=== PATIENT | male | born 1955 | race Caucasian/White ===

== ENCOUNTER 2016-12-01 20:55 | Outpatient (CLI) | payer MEDICAID | END 2016-12-01 20:56 | disposition EMS.NT | LOC: EMS 20:55 | PROVIDERS: ATTEND Surgery | DX: F10.129 Alcohol abuse with intoxication, unspecified (principal) ==

== ENCOUNTER 2016-12-07 20:44 | Outpatient (CLI) | payer MEDICAID | END 2016-12-07 20:45 | disposition critical access hospital (66) | LOC: EMS 20:44 | PROVIDERS: ATTEND Surgery | DX: M25.551 Pain in right hip (principal); M25.562 Pain in left knee; W19.XXXA Unspecified fall, initial encounter | CPT/HCPCS: A0425; A0429 ==

== ENCOUNTER 2016-12-07 20:57 | Emergency (ER) | payer MEDICAID ==
--- NOTE | 2016-12-07 21:56 | XRAY Preliminary Report ---
Exam: XR KNEE 3 VIEW LT IMPRESSION: Normal knee radiography. [facility] SITE ID: [id number]
--- NOTE | 2016-12-07 21:58 | XRAY Preliminary Report ---
Exam: XR HIP W/PELVIS 1V RT IMPRESSION: 1. No fracture. 2. Minimal degenerative changes in the left hip joint. [facility] SITE ID: [id number]
--- NOTE | 2016-12-07 21:59 | XRAY Report ---
EXAM: LEFT KNEE RADIOGRAPHY EXAM DATE: 12/07/2016 09:37 PM. CLINICAL HISTORY: Fall, hip and knee pain. COMPARISON: None. TECHNIQUE: 3 views. FINDINGS: Bones: Normal. No fractures or bone lesions. Joints: Normal. No effusion. No subluxations. Soft Tissues: Normal. No soft tissue swelling. IMPRESSION: Normal knee radiography. [facility] Referring Provider Line: [phone] SITE ID: [id number]
--- NOTE | 2016-12-07 22:51 | ED Physician Documentation ---
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 Patient was sitting outside of [facility] for a few hours and woudn't leave. [facility] called police. Patient stated that he thought that he was in [place] and stated that he had some leg pain and hip pain so ems brought patient in for evaluation. Patient admitted to drinking a few beers today. Review of Systems Unable to obtain: Intoxicated PD PAST MEDICAL HISTORY - Past Medical History Past Medical History: Yes GI: GERD Psych: Depression, Anxiety Musculoskeletal: Chronic back pain - Past Surgical History Past Surgical History: No - Present Medications Home Medications: Ambulatory Orders Medication Instructions Recorded Confirmed Citalopram [CeleXA] 20 mg ORAL DAILY 12/07/16 12/07/16 Omeprazole [PriLOSEC] 20 mg ORAL DAILY 12/07/16 12/07/16 traZODone [Desyrel] 40 mg ORAL DAILY 12/07/16 12/07/16 - Allergies Allergies/Adverse Reactions: Allergies Allergy/AdvReac Type Severity Reaction Status Date / Time No Known Drug Allergies Allergy Verified 12/07/16 21:03 - Social History Does the pt smoke?: Yes Smoking Status: Current every day smoker Does the pt drink ETOH?: Yes ETOH Use: Beer Does the pt have substance abuse?: Yes Substance Use and Type: Marijuana - Immunizations Immunizations are current?: No - POLST Patient has POLST: No PD ED PE NORMAL - Vitals Vital signs reviewed: Yes - General General: No acute distress - HEENT HEENT: Atraumatic, PERRL - Neck Neck: No bony TTP - Cardiac Cardiac: RRR, No murmur - Respiratory Respiratory: No respiratory distress - Abdomen Abdomen: Non distended - Derm Derm: No rash - Neuro Neuro: No motor deficit PD ED PE EXPANDED - General General: Disheveled, poorly kept - HEENT HEENT: Atraumatic, Other (poor dentition) - Extremities Extremities: Right hip (mild tenderness to palpation, no gross deformity) - Psych Psych: Intoxicated / AOB Results - Vitals Vitals: Vital Signs - 24 hr 12/07/16 12/08/16 20:59 04:10 Temperature 36 C L 37 C Heart Rate 95 99 Respiratory 18 20 Rate Blood Pressure 133/94 H 120/77 O2 Saturation 97 99 Oxygen O2 Source Room air - Labs Labs: Laboratory Tests 12/07/16 21:42 Ethyl Alcohol 373.7 - Rads (name of study) right hip Radiology: Final report received (mild djd, no fracture or dislocation) left knee Radiology: Final report received (no acute abnormality) PD MEDICAL DECISION MAKING - ED course Complexity details: reviewed old records, reviewed results, re-evaluated patient , considered differential, d/w patient ED course: Patient was seen and examined at bedside. Patient was intoxicated but moving all extremities, and was able to answer simple questions and was maintaining his own airway. imaging was ordered, as well as an etoh. patient's etoh was found to be 373. Patient was observed overnight with frequent re-observations. Patient remained stable overnight. In the morning patient was able to ambulate without difficulty and attend to conversation. patient required no further work up and was stable for discharge with outpatient follow up. Departure - Departure Disposition: 01 Home, Self Care Clinical Impression: Alcohol intoxication Condition: Good Instructions: ED Alcohol Intoxication Follow-Up: Jennifer Mclaughlin PA [Primary Care Provider] - As Needed Comments: Your symptoms today were caused by excessive alcohol consumption. Your x-rays were within normal limits. You should refrain from such excessive drinking. You should work with your pmd to set up a plan to help you quit drinking. You return to the emergency department at any time if needed for new, worsening or uncontrollable symptoms.
--- NOTE | 2016-12-07 23:01 | XRAY Report ---
EXAM: RIGHT HIP AND PELVIS RADIOGRAPHY EXAM DATE: 12/07/2016 09:37 PM. HISTORY: Fall, hip and knee pain. COMPARISONS: None. TECHNIQUE: 1 view of the pelvis and 1 view of the hip. FINDINGS: Bones: Normal. No fracture or bone lesion. Joints: Minimal degenerative changes. Soft Tissues: Normal. No soft tissue swelling. IMPRESSION: 1. No fracture. 2. Minimal degenerative changes in the left hip joint. [facility] Referring Provider Line: [phone] SITE ID: [id number]
[2016-12-08 05:23] VITALS: BP 130/87
== END 2016-12-08 05:28 | disposition home or self-care (01) ==
LOC: EDUNIT# → ED 20:57
DX: F10.129 Alcohol abuse with intoxication, unspecified (principal); K21.9 Gastro-esophageal reflux disease without esophagitis; F17.200 Nicotine dependence, unspecified, uncomplicated
CPT/HCPCS: 36415; 80320; 99283